=== PATIENT | male | born 1970 | race African-American/Black ===

== ENCOUNTER 2018-09-22 00:27 | Emergency (ER) | payer SELFPAY ==
[~2018-09-22] VITALS: Ht 190.5 cm; Wt 132.5 kg
[2018-09-22 00:35] VITALS: BP 151/86; PULSE 69; RESP 18; Ht 190.5 cm; Wt 132.5 kg
== END 2018-09-22 01:02 | disposition left against medical advice (07) ==
LOC: FTE 00:27
DX: Z53.21 Procedure and treatment not carried out due to patient leaving prior to being seen by health care provider (principal)